=== PATIENT | male | born 1965 | race Caucasian/White ===

== ENCOUNTER → 2018-03-05 | Outpatient (CLI) | payer OTHER, MEDICARE ==
[~2018-03-05] MED LIST: ASPEC81; DRGTP50; PRLSR20; SIMV10TA2; SYN125
--- NOTE | 2018-03-05 15:48 | DIAGNOSTIC IMAGING REPORT ---
THYROID ULTRASOUND HISTORY: MAT'S COMPARISON: None. FINDINGS: Right lobe: 4.8 x 2.3 x 1.7 cm. Heterogeneous with increased vascularity. No definite nodules. Left lobe: 4.3 x 1.9 x 1.5 cm. Heterogeneous with increased vascularity. There is a 15 x 11 x 11 mm upper pole nodule. This is heterogeneous and solid. Isthmus: 6 mm in thickness. No nodules. IMPRESSION: 1. Heterogeneous and mildly enlarged thyroid gland with increased vascularity. This could represent a thyroiditis. 2. A 15 x 11 x 11 mm left upper pole solid nodule. Electronically signed by: Charlie Mahmood M.D. 03/05/2018 3:47 PM Dictated Date/Time: 03/05/2018 3:45 PM
== END | disposition home or self-care (01) ==
LOC: C.ULTRBC 15:17
PROVIDERS: ATTEND Internal Medicine Endocrinology, Diabetes & Metabolism
DX: E06.3 Autoimmune thyroiditis (principal)